=== PATIENT | male | born 1995 | race Caucasian/White ===

== ENCOUNTER 2017-04-09 10:42 | Emergency (ER) | payer OTHER ==
[2017-04-09 11:24] VITALS: BP 130/81
[2017-04-09] MEDS ORDERED: Lidocaine 2% 10 ML* VIAL INJ ONE (11:42)
[2017-04-09] MEDS ORDERED: Lidocaine 2% PF * 5 ML VIAL ONE (11:44)
--- NOTE | 2017-04-09 12:14 | UC ---
Laceration HPI - HPI Summary HPI Summary: laceration right palm x 10 hrs ago cut her right palm on a broken glass - History Of Current Complaint Chief Complaint: UCLaceration Stated Complaint: RT HAND LACERATION Time Seen by Provider: 04/09/17 11:22 Hx Obtained From: Patient Laceration Location: Hand - right palm Mechanism Of Injury: Sharp Trauma Onset/Duration: Sudden Onset, Lasting Hours - 10 hrs ago, Still Present Severity: Moderate Pain Intensity: 0 Aggravating Factors: Movement Hands: 1 - 3 cm laceration right palm - Allergies/Home Medications Allergies/Adverse Reactions: Allergies Allergy/AdvReac Type Severity Reaction Status Date / Time No Known Allergies Allergy Verified 04/09/17 11:18 Home Medications: Home Medications Adderal Medication 50 mg PO DAILY 04/09/17 [History] PMH/Surg Hx/FS Hx/Imm Hx Previously Healthy: Yes - Surgical History Surgical History: None - Family History Known Family History: Negative: Diabetes - Social History Alcohol Use: Weekly Substance Use Type: None Smoking Status (MU): Never Smoked Tobacco - Immunization History Most Recent Tetanus Shot: within past year Review of Systems Constitutional: Negative Eyes: Negative ENT: Negative Respiratory: Negative Cardiovascular: Negative Is Patient Immunocompromised?: No All Other Systems Reviewed And Are Negative: Yes Physical Exam Triage Information Reviewed: Yes Appearance: Well-Appearing, No Pain Distress, Well-Nourished Vital Signs: Initial Vital Signs Temp 98.5 F 04/09/17 11:19 Pulse 74 04/09/17 11:19 Resp 16 04/09/17 11:19 BP 130/81 04/09/17 11:19 Pulse Ox 97 04/09/17 11:19 Vital Signs Reviewed: Yes Eye Exam: Normal Eyes: Positive: Conjunctiva Clear ENT: Positive: Normal ENT inspection, Hearing grossly normal, Pharynx normal Neck: Positive: Supple, Nontender, No Lymphadenopathy Respiratory: Positive: Chest non-tender, Lungs clear, Normal breath sounds Cardiovascular: Positive: RRR, No Murmur, Pulses Normal Skin: Positive: Other - laceration right palm 3 cm in diameter / deep Laceration Repair - Laceration Repair 1 Description: Linear - right palm Laceration Size After Repair: Length (cm) - 3, Width (mm) - 3, Depth (mm) - 3 Modified For Repair: No Type Injection: Local Anesthesia Used: 2.0% Lido - 5 cc Cleansing Completed Via Routine Prep: Yes Irrigation With Pressure Irrigation Device: Yes Closure Material: Sutures Closure Method: Single Layer Suture Type: Nylon - 5.0 x 7 Laceration Course/Dx - Differential Dx - Laceration/Wound Provider Diagnoses: laceration right palm Discharge - Discharge Plan Condition: Stable Disposition: HOME Prescriptions: Amoxicillin/Clavulanate TAB* [Augmentin TAB 875*] 875 mg PO BID #20 tab Patient Education Materials: Laceration (ED) Additional Instructions: follow up at the urgent care in 10 days for suture removal
== END 2017-04-09 12:28 | disposition home or self-care (01) ==
LOC: UCCORT 10:42
DX: S61.411A Laceration without foreign body of right hand, initial encounter (principal); W25.XXXA Contact with sharp glass, initial encounter; Y93.9 Activity, unspecified; Y92.9 Unspecified place or not applicable
CPT/HCPCS: 12002; 99202; G0463

== ENCOUNTER 2017-04-20 11:03 | Emergency (ER) | payer OTHER ==
[2017-04-20 13:01] VITALS: BP 123/73
--- NOTE | 2017-04-20 13:13 | ED ---
Skin Complaint - HPI Summary HPI Summary: Sutures removal. Wound is doing well and no signs of infection. - History of Current Complaint Chief Complaint: UCGeneralIllness Time Seen by Provider: 04/20/17 13:04 Stated Complaint: SUTURE REMOVAL Hx Obtained From: Patient Onset/Duration: Started Hours Ago Skin Exposure Onset/Duration: Days Ago Timing: Constant, Lasting Days Onset Severity: Moderate Current Severity: None Pain Intensity: 0 Skin Location: Discrete Aggravating Symptom(s): Nothing Alleviating Symptom(s): Nothing Associated Signs & Symptoms: Negative - Allergy/Home Medications Allergies/Adverse Reactions: Allergies Allergy/AdvReac Type Severity Reaction Status Date / Time No Known Allergies Allergy Verified 04/20/17 12:57 PMH/Surg Hx/FS Hx/Imm Hx Previously Healthy: Yes Infectious Disease History: No Infectious Disease History: Denies: Traveled Outside the [place] in Last 30 Days - Family History Known Family History: Negative: Diabetes - Social History Occupation: Employed Full-time Alcohol Use: Weekly Substance Use Type: Reports: None Smoking Status (MU): Never Smoked Tobacco Review of Systems Skin: Other - laceration healing well. All Other Systems Reviewed And Are Negative: Yes Physical Exam Triage Information Reviewed: Yes Vital Signs On Initial Exam: Initial Vitals Temp Pulse Resp BP Pulse Ox 98 F 68 16 123/73 97 04/20/17 12:57 04/20/17 12:57 04/20/17 12:57 04/20/17 12:57 04/20/17 12:57 Vital Signs Reviewed: Yes Appearance: Positive: Well-Appearing, No Pain Distress, Well-Nourished Skin: Positive: Other - right hand lino laceration. Sutures removed. NO redness or swelling. Eyes: Positive: EOMI ENT: Positive: Normal ENT inspection Neck: Negative: Nuchal Rigidity Respiratory/Lung Sounds: Negative: Unable to speak in full sentences Cardiovascular: Negative: Leg Edema Left, Leg Edema Right Abdomen Description: Negative: Distended Musculoskeletal: Negative: Edema Left, Edema Right Neurological: Positive: Sensory/Motor Intact Psychiatric: Positive: Normal, Affect/Mood Appropriate. Negative: Anxious Procedures - Procedure Summary Procedure Summary: suture removal without complications. All removed. no remaining sutures. Diagnostics - Vital Signs Vital Signs Temp Pulse Resp BP Pulse Ox 04/20/17 12:57 98 F 68 16 123/73 97 - Laboratory Lab Statement: Any lab studies that have been ordered have been reviewed, and results considered in the medical decision making process. Course/Dx - Course Course Of Treatment: well healing wound. Sutures revoved. He works in a restaurant. We discussed not getting this wet or dirty. He agreed to wear gloves at work. - Diagnoses Provider Diagnoses: Encounter for removal of sutures Discharge - Discharge Plan Condition: Good Disposition: HOME Patient Education Materials: Stitches Removal (ED) Referrals: No Primary Care Phys,NOPCP [Primary Care Provider] - Additional Instructions: return here for any complications.
== END 2017-04-20 13:10 | disposition home or self-care (01) ==
LOC: UCCORT 11:03
DX: Z48.02 Encounter for removal of sutures (principal)